=== PATIENT | male | born 1935 | race Caucasian/White ===

== ENCOUNTER 2017-06-29 06:54 | Day surgery (SDC) | payer MEDICARE ==
[~2017-06-29] VITALS: Ht 157.5 cm; Wt 65.3 kg
[~2017-06-29 06:54] MED LIST: ADULT ASPIRIN E81 MG PO; ALBUTEROL SUL0.083 % IN; AMITRIPTYLIN25 MG PO; APRESOLINE25 MG/TAB PO; ASPIRIN81 MG PO; BIOTIN5000 MC1 PO; FUROSEMIDE20 MG PO; FUROSEMIDE40 MG PO; GABAPENTIN100 MG PO; HYDROXYZINE HCL25 M1 PO; KLOR-CON 1010 ME1 PO; LISINOPRIL5 MG PO; LORTAB 5/3255 MG PO; MELATONIN5 MG PO; METOPROL TAR25 MG PO; MULT VITAMI1 PO; NEXIUM 24HR20 MG PO; NORTRIPTYLIN PO; PREDNISONE10 MG PO; PREDNISONE5 MG PO; RED YEAST RICE300 MG PO; SYMBICORT1 AE1 IN; VITAMIN B CO PO; WELCHOL625 MG PO; ZETIA10 MG PO; ZOLPIDEM5 M1 PO
[2017-06-29] MEDS ORDERED: NORCO1 TA1 PO (10:45)
[2017-06-29] MEDS ORDERED: COLACE100 MG PO (10:45)
[2017-06-29] MEDS ORDERED: TORADOL PO (10:45)
[2017-06-29] MEDS ORDERED: BACTRIM DS1 TAB PO (10:45)
[2017-06-29 11:59] VITALS: BP 129/60
== END 2017-06-29 12:25 | disposition home or self-care (01) ==
LOC: ORM 06:54
PROVIDERS: ATTEND Urology
PROC: 0VB70ZZ Excision of Left Tunica Vaginalis, Open Approach (ICD-10-PCS; principal; 2017-06-29)
PROC: 0VBK0ZZ Excision of Left Epididymis, Open Approach (ICD-10-PCS; 2017-06-29)
DX: N43.3 Hydrocele, unspecified (principal); N50.3 Cyst of epididymis
CPT/HCPCS: Q9967

== ENCOUNTER → 2018-11-07 | Outpatient (REF) | payer MEDICARE ==
[~2018-11-07] MED LIST changes: +BACTRIM DS1 TAB PO; +COLACE100 MG PO; +NORCO1 TA1 PO; +TORADOL PO
== END | disposition home or self-care (01) ==
LOC: ULTRASND 14:45
PROVIDERS: ATTEND Nurse Practitioner Family
DX: R60.0 Localized edema (principal); M79.662 Pain in left lower leg